=== PATIENT | female | born 1940 | race Caucasian/White ===

== ENCOUNTER → 2017-12-09 | Outpatient (CLI) | payer MEDICARE ==
[~2017-12-09] MED LIST: AMLO10TA2 PO; APIX5TAB PO; CITA20TA6 PO; LISI1TAB7 PO; MAGN400C PO; METO-99 PO; MULT-123 PO; OMEP20TA62 PO; UBID100C24 PO; VITA1CAP PO
[2017-12-09 12:38] LABS: MICROSCOPIC AUTO
[2017-12-09 12:38] LABS: BASOPHILS # (AUTO) 0.04 x10^3/uL (0-0.1); BASOPHILS % (AUTO) 1 % (0-1); EOSINOPHILS # (AUTO) 0.22 x10^3/uL (0-0.4); EOSINOPHILS % (AUTO) 3 % (1-7); LYMPHOCYTES # (AUTO) 1.19 x10^3/uL (1-3.4); LYMPHOCYTES % (AUTO) 18 % (22-44); MD NO; MEAN CORPUSCULAR HEMOGLOBIN 30.1 pg (27.0-34.8); MEAN CORPUSCULAR HGB CONC 33.3 g/dL (32.4-35.8); MEAN CORPUSCULAR VOLUME 90.3 fL (80-100); MONOCYTES % (AUTO) 11 % (2-9); NEUTROPHILS # (AUTO) 4.42 x10^3/uL (1.8-6.8); NEUTROPHILS % (AUTO) 67 % (42-75); PLATELET COUNT 164 x10^3/uL (130-400); RED BLOOD COUNT 4.62 x10^6/uL (3.82-5.3); RED CELL DISTRIBUTION WIDTH 14.7 % (9.6-15.2)
[2017-12-09 12:41] LABS: CULTURE INDICATED? YES
[2017-12-09 12:45] LABS: INTERNATIONAL NORMALIZED RATIO 1.04 (0.93-1.1); PROTHROMBIN TIME 10.7 Seconds (9.6-11.5)
[2017-12-09 12:49] LABS: ALANINE AMINOTRANSFERASE 20 U/L (12-78); ALBUMIN 3.4 g/dL (3.4-5.0); ANION GAP 5 mmol/L (5-15); CHLORIDE 104 mmol/L (98-107); CREATININE 1.26 mg/dL (0.55-1.02)
[2017-12-09 12:51] LABS: ALKALINE PHOSPHATASE 82 U/L (45-117); BILIRUBIN,TOTAL 0.6 mg/dL (0.2-1.0); TOTAL PROTEIN 7.2 g/dL (6.4-8.2)
== END | disposition home or self-care (01) ==
LOC: STAR 11:17
PROVIDERS: ATTEND Neurological Surgery
DX: Z01.818 Encounter for other preprocedural examination (principal); M48.061 Spinal stenosis, lumbar region without neurogenic claudication; M43.16 Spondylolisthesis, lumbar region
CPT/HCPCS: 36415; 71046; 80053; 81001; 85025; 85610; 85730; 87086; 93005

== ENCOUNTER 2017-12-16 05:42 | Inpatient (IN) | payer MEDICARE ==
[~2017-12-16] VITALS: Ht 160 cm; Wt 93.2 kg
[2017-12-16] MEDS ORDERED: LACTATED RINGERS 1,000 ML IV SCH (06:11)
[2017-12-16] MEDS ORDERED: NEOSPORIN OINT, 15GM ONE (06:37)
[2017-12-16] MEDS ORDERED: BUPIVACAINE/PF 0.5% ONE (06:37)
[2017-12-16] MEDS ORDERED: THROMBIN 5,000 UNIT VIAL TP ONE (06:37)
[2017-12-16] MEDS ORDERED: EPINEPHRINE 1 MG/ML, 1ML ONE (06:38)
[2017-12-16] MEDS ORDERED: BACITRACIN 50,000 UNIT ONE (06:38)
[2017-12-16 06:43] VITALS: BP 162/80
[2017-12-16] MEDS ORDERED: REMIFENTANIL 1 MG ONE (07:13)
[2017-12-16] MEDS ORDERED: KETAMINE 10 MG/ML, 20ML ONE (07:13)
[2017-12-16] MEDS ORDERED: FENTANYL PF 100 MCG/2ML ONE ×2 (07:23→09:51)
[2017-12-16] MEDS ORDERED: MIDAZOLAM 1 MG/ML, 2ML ONE (07:23)
[2017-12-16] MEDS ORDERED: CEFAZOLIN 1,000 MG ONE ×2 (07:28)
[2017-12-16] MEDS ORDERED: WATER-INJECTION,STERILE 10 ML IV ONE (07:29)
[2017-12-16] MEDS ORDERED: ONDANSETRON 2MG/ML, 2ML ONE (07:30)
[2017-12-16] MEDS ORDERED: DEXAMETHASONE 4 MG/ML, 1ML ONE (07:30)
[2017-12-16] MEDS ORDERED: METOCLOPRAMIDE 5 MG/ML, 2ML ONE (07:31)
[2017-12-16] MEDS ORDERED: MIDAZOLAM 1 MG/ML, 2ML IV PRN (09:30)
[2017-12-16] MEDS ORDERED: ONDANSETRON 2MG/ML, 2ML IVPush PRN (09:30)
[2017-12-16] MEDS ORDERED: OXYcodone 5 MG/5 ML ORAL.SOL UDC PO PRN (09:30)
[2017-12-16] MEDS ORDERED: LABETALOL 5MG/ML, 20ML IV PRN (09:30)
[2017-12-16] MEDS ORDERED: MEPERIDINE/PF 25MG/0.5ML IVPush PRN (09:30)
[2017-12-16] MEDS ORDERED: HYDROmorphone 2 MG/ML, 1ML ONE (09:51)
[2017-12-16] MEDS ORDERED: OXYcodone 5 MG/5 ML ORAL.SOL UDC ONE (09:52)
[2017-12-16] MEDS: FENTANYL PF 100 MCG/2ML IV PRN ×2 (09:55→10:00)
[2017-12-16] MEDS: HYDROmorphone 1 MG/ML, 1ML IV PRN ×2 (10:10→10:15)
[2017-12-16] MEDS ORDERED: DIPHENHYDRAMINE 50 MG/ML, 1ML IM PRN (11:30)
[2017-12-16] MEDS ORDERED: DIPHENHYDRAMINE 50 MG/ML, 1ML IVPush PRN (11:30)
[2017-12-16] MEDS ORDERED: MAGNESIUM HYDROXIDE 8%, 30ML UDC PO PRN (11:30)
[2017-12-16] MEDS ORDERED: DIPHENHYDRAMINE 50 MG CAPSULE PO PRN (11:30)
[2017-12-16] MEDS ORDERED: METHOCARBAMOL 1,000 MG in DEXTROSE 5% 100 ML IV ONE (11:30)
[2017-12-16] MEDS ORDERED: HYDROcodone/APAP 5/325 TABLET PO PRN (11:30)
[2017-12-16] MEDS ORDERED: BISACODYL 10 MG SUPP PR PRN (11:30)
[2017-12-16] MEDS ORDERED: morphine SULFATE 10 MG/ML, 1ML IV PRN (11:30)
[2017-12-16] MEDS ORDERED: ONDANSETRON 2MG/ML, 2ML IV PRN (11:30)
[2017-12-16] MEDS: D5%-0.9% NACL+KCL 20MEQ 1,000 ML IV SCH ×2 (12:15→23:49)
[2017-12-16 12:30] VITALS: BP 112/51
[2017-12-16] MEDS: CEFAZOLIN PMX 1GM/50ML 50 ML IVPB SCH ×2 (15:06→23:46)
[2017-12-16] MEDS: METHOCARBAMOL 750 MG in DEXTROSE 5% 100 ML IV SCH (19:47)
[2017-12-16 20:00] VITALS: BP 126/66
[2017-12-17 00:11] VITALS: BP 131/64
[2017-12-17] MEDS: METHOCARBAMOL 750 MG in DEXTROSE 5% 100 ML IV SCH (03:31)
[2017-12-17 04:20] VITALS: BP 152/74
[2017-12-17] MEDS ORDERED: THROMBIN 5,000 UNIT VIAL TP ONE (06:23)
[2017-12-17] MEDS ORDERED: BUPIVACAINE/PF 0.5% ONE (06:23)
[2017-12-17] MEDS ORDERED: EPINEPHRINE 1 MG/ML, 1ML ONE (06:24)
[2017-12-17] MEDS ORDERED: BACITRACIN 50,000 UNIT ONE (06:24)
[2017-12-17] MEDS ORDERED: METOPROLOL TARTRATE 100 MG TABLET ONE (06:29)
[2017-12-17] MEDS ORDERED: BUPIVACAINE 0.25% ONE ×3 (06:33→10:34)
[2017-12-17] MEDS ORDERED: BUPIVACAINE/PF-EPI 0.25% 1:200K ONE (06:33)
[2017-12-17 06:42] VITALS: BP 149/79
[2017-12-17] MEDS: METOPROLOL TARTRATE 100 MG TABLET PO SCH (06:43)
[2017-12-17] MEDS ORDERED: FENTANYL PF 250 MCG/5ML ONE (07:20)
[2017-12-17] MEDS ORDERED: HYDROmorphone 1 MG/ML, 1ML IV PRN (07:30)
[2017-12-17] MEDS ORDERED: ONDANSETRON ODT 8 MG PO PRN (07:30)
[2017-12-17] MEDS ORDERED: PROMETHAZINE 25 MG/ML, 1ML IV PRN (07:30)
[2017-12-17] MEDS ORDERED: ACETAMINOPHEN 325 MG TABLET PO PRN (07:30)
[2017-12-17] MEDS ORDERED: HYDROcodone/APAP 7.5-325MG/15ML UDC PO PRN (07:30)
[2017-12-17] MEDS ORDERED: LABETALOL 5MG/ML, 20ML IV PRN (07:30)
[2017-12-17] MEDS ORDERED: METOPROLOL 1 MG/ML, 5ML IV PRN (07:30)
[2017-12-17] MEDS: OMEPRAZOLE 20 MG CAPSULE.DR PO SCH (07:30)
[2017-12-17] MEDS: D5%-0.9% NACL+KCL 20MEQ 1,000 ML IV SCH ×2 (07:30→19:37)
[2017-12-17] MEDS ORDERED: OXYcodone 5 MG/5 ML ORAL.SOL UDC PO PRN (07:30)
[2017-12-17] MEDS ORDERED: MORPHINE SULFATE 4 MG/ML, 1ML IVPush PRN (07:30)
[2017-12-17] MEDS ORDERED: hydrALAzine 20 MG/ML, 1ML IV PRN (07:30)
[2017-12-17] MEDS: MAGNESIUM OXIDE 400 MG TABLET PO SCH (09:00)
[2017-12-17] MEDS: CITALOPRAM 20 MG TABLET PO SCH (09:00)
[2017-12-17] MEDS: HYDROCHLOROTHIAZIDE 25 MG TABLET PO SCH (09:00)
[2017-12-17] MEDS: LISINOPRIL 20 MG TABLET PO SCH (09:00)
[2017-12-17] MEDS: AMLODIPINE 5 MG TABLET PO SCH (09:00)
[2017-12-17] MEDS: MULTIVITAMINS/MINERALS TABLET PO SCH (09:00)
[2017-12-17] MEDS: SENNA/DOCUSATE TABLET PO SCH (09:00)
[2017-12-17] MEDS: MULTIVITS,STRESS FORMULA 1 TABLET PO SCH (09:00)
[2017-12-17] MEDS ORDERED: OXYcodone 5 MG/5 ML ORAL.SOL UDC ONE (10:37)
[2017-12-17] MEDS ORDERED: FENTANYL PF 100 MCG/2ML ONE (10:37)
[2017-12-17] MEDS: FENTANYL PF 100 MCG/2ML IV PRN ×3 (10:40→10:50)
[2017-12-17] MEDS ORDERED: ONDANSETRON 2MG/ML, 2ML ONE (10:49)
[2017-12-17] MEDS ORDERED: PROPOFOL 10 MG/ML, 20ML ONE (10:49)
[2017-12-17] MEDS ORDERED: MORPHINE SULFATE 4 MG/ML, 1ML ONE (10:49)
[2017-12-17] MEDS ORDERED: SUCCINYLCHOLINE 20 MG/ML, 10ML ONE (10:49)
[2017-12-17] MEDS ORDERED: GLYCOPYRROLATE 0.2MG/1ML, 5ML ONE (10:49)
[2017-12-17] MEDS ORDERED: DEXAMETHASONE 4 MG/ML, 1ML ONE (10:49)
[2017-12-17] MEDS ORDERED: CEFAZOLIN 1,000 MG ONE (10:49)
[2017-12-17] MEDS ORDERED: NEOSTIGMINE 1 MG/ML, 10ML ONE (10:49)
[2017-12-17] MEDS ORDERED: DIAZEPAM 5 MG/ML, 2ML IVPush PRN ×2 (12:00)
[2017-12-17 13:00] VITALS: BP 113/74
[2017-12-17] MEDS ORDERED: DIPHENHYDRAMINE 50 MG/ML, 1ML IM PRN (13:30)
[2017-12-17] MEDS ORDERED: DIPHENHYDRAMINE 50 MG/ML, 1ML IVPush PRN (13:30)
[2017-12-17] MEDS: METHOCARBAMOL 750 MG TABLET PO SCH ×2 (13:30→22:26)
[2017-12-17] MEDS ORDERED: OXYcodone/APAP 5/325MG TABLET PO PRN (13:30)
[2017-12-17] MEDS ORDERED: DIPHENHYDRAMINE 50 MG CAPSULE PO PRN (13:30)
[2017-12-17] MEDS ORDERED: HYDROcodone/APAP 5/325 TABLET PO PRN (13:30)
[2017-12-17] MEDS ORDERED: morphine SULFATE 10 MG/ML, 1ML IV PRN (13:30)
[2017-12-17] MEDS: CEFAZOLIN PMX 1GM/50ML 50 ML IVPB SCH ×2 (13:47→22:26)
[2017-12-17 19:45] VITALS: BP 126/66
[2017-12-17 23:42] VITALS: BP 133/70
[2017-12-18] MEDS: OXYcodone/APAP 5/325MG TABLET PO PRN ×3 (01:42→16:32)
[2017-12-18 03:30] VITALS: BP 132/71
[2017-12-18] MEDS: METHOCARBAMOL 750 MG TABLET PO SCH ×5 (05:57→23:41)
[2017-12-18] MEDS: D5%-0.9% NACL+KCL 20MEQ 1,000 ML IV SCH ×3 (05:57→22:14)
[2017-12-18 07:44] VITALS: BP 138/75
[2017-12-18] MEDS: MULTIVITS,STRESS FORMULA 1 TABLET PO SCH (09:10)
[2017-12-18] MEDS: MULTIVITAMINS/MINERALS TABLET PO SCH (09:10)
[2017-12-18] MEDS: LISINOPRIL 20 MG TABLET PO SCH (09:10)
[2017-12-18] MEDS: OMEPRAZOLE 20 MG CAPSULE.DR PO SCH (09:10)
[2017-12-18] MEDS: AMLODIPINE 5 MG TABLET PO SCH (09:11)
[2017-12-18] MEDS: HYDROCHLOROTHIAZIDE 25 MG TABLET PO SCH (09:11)
[2017-12-18] MEDS: SENNA/DOCUSATE TABLET PO SCH (09:11)
[2017-12-18] MEDS: CITALOPRAM 20 MG TABLET PO SCH (09:11)
[2017-12-18] MEDS: MAGNESIUM OXIDE 400 MG TABLET PO SCH (09:11)
[2017-12-18] MEDS: METOPROLOL TARTRATE 100 MG TABLET PO SCH (09:12)
[2017-12-18] MEDS: ENOXAPARIN 40 MG/0.4 ML SQ SCH (11:41)
[2017-12-18 14:17] VITALS: BP 125/77
[2017-12-18 19:18] VITALS: BP 105/55
[2017-12-19 02:28] VITALS: BP 120/66
[2017-12-19 06:08] LABS: CREATININE 1.02 mg/dL (0.55-1.02)
[2017-12-19 07:15] VITALS: BP 119/69
[2017-12-19] MEDS: CITALOPRAM 20 MG TABLET PO SCH (07:38)
[2017-12-19] MEDS: HYDROCHLOROTHIAZIDE 25 MG TABLET PO SCH (07:42)
[2017-12-19] MEDS: OMEPRAZOLE 20 MG CAPSULE.DR PO SCH (07:42)
[2017-12-19] MEDS: METHOCARBAMOL 750 MG TABLET PO SCH ×5 (07:42→23:46)
[2017-12-19] MEDS: METOPROLOL TARTRATE 100 MG TABLET PO SCH (07:43)
[2017-12-19] MEDS: MULTIVITAMINS/MINERALS TABLET PO SCH (07:43)
[2017-12-19] MEDS: MAGNESIUM OXIDE 400 MG TABLET PO SCH (07:43)
[2017-12-19] MEDS: AMLODIPINE 5 MG TABLET PO SCH (07:43)
[2017-12-19] MEDS: LISINOPRIL 20 MG TABLET PO SCH (07:43)
[2017-12-19] MEDS: MULTIVITS,STRESS FORMULA 1 TABLET PO SCH (07:44)
[2017-12-19] MEDS: SENNA/DOCUSATE TABLET PO SCH (07:44)
[2017-12-19] MEDS: OXYcodone/APAP 5/325MG TABLET PO PRN ×3 (07:44→23:46)
[2017-12-19] MEDS: ENOXAPARIN 40 MG/0.4 ML SQ SCH (11:30)
[2017-12-19] MEDS: D5%-0.9% NACL+KCL 20MEQ 1,000 ML IV SCH ×2 (11:30→21:30)
[2017-12-19 14:04] VITALS: BP 119/70
[2017-12-19 20:21] VITALS: BP 127/68
[2017-12-20 02:00] VITALS: BP 130/68
[2017-12-20] MEDS: METHOCARBAMOL 750 MG TABLET PO SCH ×3 (03:30→11:30)
[2017-12-20] MEDS: D5%-0.9% NACL+KCL 20MEQ 1,000 ML IV SCH (03:54)
[2017-12-20 07:34] VITALS: BP 147/69
[2017-12-20] MEDS: CITALOPRAM 20 MG TABLET PO SCH (08:28)
[2017-12-20] MEDS: HYDROCHLOROTHIAZIDE 25 MG TABLET PO SCH (08:29)
[2017-12-20] MEDS: OMEPRAZOLE 20 MG CAPSULE.DR PO SCH (08:29)
[2017-12-20] MEDS: SENNA/DOCUSATE TABLET PO SCH (08:30)
[2017-12-20] MEDS: LISINOPRIL 20 MG TABLET PO SCH (08:30)
[2017-12-20] MEDS: AMLODIPINE 5 MG TABLET PO SCH (08:30)
[2017-12-20] MEDS: MAGNESIUM OXIDE 400 MG TABLET PO SCH (08:30)
[2017-12-20] MEDS: MULTIVITS,STRESS FORMULA 1 TABLET PO SCH (08:30)
[2017-12-20] MEDS: MULTIVITAMINS/MINERALS TABLET PO SCH (08:30)
[2017-12-20] MEDS: OXYcodone/APAP 5/325MG TABLET PO PRN (09:43)
[2017-12-20] MEDS: METOPROLOL TARTRATE 100 MG TABLET PO SCH (09:43)
[2017-12-20] MEDS ORDERED: OXYC-302 PO (09:51)
[2017-12-20] MEDS ORDERED: METH750T87 PO (09:52)
[2017-12-20] MEDS: ENOXAPARIN 40 MG/0.4 ML SQ SCH (11:40)
[2017-12-20] MEDS ORDERED: PNEUMOCOCCAL 23 VACCINE IM-VACC ONE (12:00)
== END 2017-12-20 13:40 | disposition home or self-care (01) | DRG 455 ==
LOC: ORIP 05:42 → 4NOR 11:06 → DCLOUNGE 12-20 13:16
PROVIDERS: ADMIT Neurological Surgery; ATTEND Neurological Surgery
PROC: 0SB20ZZ Excision of Lumbar Vertebral Disc, Open Approach (ICD-10-PCS; 2017-12-16)
PROC: 4A11X4G Monitoring of Peripheral Nervous Electrical Activity, Intraoperative, External Approach (ICD-10-PCS; 2017-12-16)
PROC: 0SG00A0 Fusion of Lumbar Vertebral Joint with Interbody Fusion Device, Anterior Approach, Anterior Column, Open Approach (ICD-10-PCS; principal; 2017-12-16 07:30)
PROC: 01NB0ZZ Release Lumbar Nerve, Open Approach (ICD-10-PCS; 2017-12-17)
PROC: 0SG0071 Fusion of Lumbar Vertebral Joint with Autologous Tissue Substitute, Posterior Approach, Posterior Column, Open Approach (ICD-10-PCS; 2017-12-17)
PROC: 0QB00ZZ Excision of Lumbar Vertebra, Open Approach (ICD-10-PCS; 2017-12-17)
DX: M48.062 Spinal stenosis, lumbar region with neurogenic claudication (principal); M43.16 Spondylolisthesis, lumbar region; M48.07 Spinal stenosis, lumbosacral region; E66.9 Obesity, unspecified; M47.26 Other spondylosis with radiculopathy, lumbar region; Z68.35 Body mass index [BMI] 35.0-35.9, adult
CPT/HCPCS: 36415; 72100; 82565; 90732; C1713; C1729; C1767; J0171; J0690; J1100; J1170; J1650; J2250; J2405; J2704; J2710; J3010; J3360; J3490; C1760; C1762; J0330; J2765; J2800; J3480; J7120